=== PATIENT | male | born 1945 | race Caucasian/White ===

== ENCOUNTER → 2016-12-19 | Outpatient (CLI) | payer BC ==
[~2016-12-19] MED LIST: ASPI81TA28 PO; CYAN100020; FOLI1TAB7 PO
[2016-12-19 11:21] LABS: ALT/SGPT 72 U/L (12-78); AST/SGOT 66 U/L (15-37); BLOOD UREA NITROGEN 13 mg/dl (7-18); BUN/CREATININE RATIO 10.5 (10-20); CALCIUM 9.1 mg/dl (8.5-10.1); CARBON DIOXIDE 27 mmol/L (21-32); CHLORIDE 105 mmol/L (98-107); GLUCOSE 142 mg/dl (70-99); POTASSIUM 4.4 mmol/L (3.5-5.1); SODIUM 141 mmol/L (136-145)
[2016-12-19 11:22] LABS: ALKALINE PHOSPHATASE 79 U/L (45-117)
[2016-12-19 11:53] LABS: ESTIMATED AVERAGE GLUCOSE 117 mg/dl; HA1C FLAG Normal (Normal)
--- NOTE | 2016-12-25 12:31 | CODING QUERY MEDICAL NECESSITY ---
SUPPORTING DIAGNOSIS NEEDED A supporting diagnosis is required for the test/procedure performed on this patient in order for us to be reimbursed by the patient's insurance. Please provide a supporting diagnosis for the following test/procedure listed below next to the test name along with your signature. *If there is no additional diagnosis for this patient that would support the following test/procedure please document that below next to the test/procedure. Test(s)/Procedure(s) that require a supporting diagnosis: * GLYCATED HEMOGLOBIN DIAGNOSIS: * DOS: 12/19/16 Provider Signature: Date: Thank you Jennifer Hardy Health Information Management Once completed, please kindly fax back to [phone] For questions please call [phone]
== END | disposition home or self-care (01) ==
LOC: C.LABBC 08:00
PROVIDERS: ATTEND Family Medicine
DX: E72.11 Homocystinuria (principal); C18.9 Malignant neoplasm of colon, unspecified; D49.0 Neoplasm of unspecified behavior of digestive system; K76.0 Fatty (change of) liver, not elsewhere classified; R73.03 Prediabetes; D68.62 Lupus anticoagulant syndrome

== ENCOUNTER → 2017-05-24 | Outpatient (CLI) | payer BC ==
[2017-05-24 10:54] LABS: BASO % 0.2 %; BASO ABS # 0.01 K/uL (0-0.2); COMPLETE YES; EOS % 2.7 %; HEMATOCRIT 44.2 % (42-52); IG% 0.2 %; LYMPH % 28.4 %; LYMPH ABS # 1.35 K/uL (1.2-3.4); MEAN CELL VOLUME 88.9 fL (80-100); MEAN CORPUSCULAR HEMOGLOBIN 30.8 pg (25-34); MEAN CORPUSCULAR HGB CONC 34.6 g/dl (32-36); MEAN PLATELET VOLUME 11.5 fL (7.4-10.4); MONO % 8.2 %; NEUT % 60.3 %; PLATELET COUNT 127 K/uL (130-400); RED BLOOD COUNT 4.97 M/uL (4.7-6.1); WHITE BLOOD COUNT 4.75 K/uL (4.8-10.8)
[2017-05-24 11:16] LABS: ALT/SGPT 66 U/L (12-78); AST/SGOT 62 U/L (15-37); BLOOD UREA NITROGEN 20 mg/dl (7-18); BUN/CREATININE RATIO 15.5 (10-20); CALCIUM 9.5 mg/dl (8.5-10.1); CARBON DIOXIDE 27 mmol/L (21-32); CHLORIDE 105 mmol/L (98-107); GLUCOSE 141 mg/dl (70-99); POTASSIUM 4.3 mmol/L (3.5-5.1); SODIUM 140 mmol/L (136-145)
[2017-05-24 11:18] LABS: ALKALINE PHOSPHATASE 69 U/L (45-117)
== END | disposition home or self-care (01) ==
LOC: C.LABBC 07:52
PROVIDERS: ATTEND Nurse Practitioner
DX: C18.8 Malignant neoplasm of overlapping sites of colon (principal)

== ENCOUNTER → 2017-07-16 | Outpatient (CLI) | payer BC ==
[2017-07-16 11:18] LABS: ESTIMATED AVERAGE GLUCOSE 137 mg/dl; HA1C FLAG Normal (Normal)
[2017-07-16 11:29] LABS: ALT/SGPT 63 U/L (12-78); AST/SGOT 59 U/L (15-37); BLOOD UREA NITROGEN 16 mg/dl (7-18); BUN/CREATININE RATIO 12.4 (10-20); CALCIUM 8.9 mg/dl (8.5-10.1); CARBON DIOXIDE 28 mmol/L (21-32); CHLORIDE 103 mmol/L (98-107); GLUCOSE 153 mg/dl (70-99); POTASSIUM 4.5 mmol/L (3.5-5.1); SODIUM 136 mmol/L (136-145)
[2017-07-16 11:31] LABS: ALB/GLOB RATIO 0.9 (0.9-2); ALKALINE PHOSPHATASE 72 U/L (45-117); CHOLESTEROL 109 mg/dl (0-200); CHOLESTEROL/HDL RATIO 2.9; HDL CHOLESTEROL 38 mg/dl; LDL CHOLESTEROL CALCULATED 52 mg/dl; TRIGLYCERIDES 96 mg/dl (0-150); VERY LOW DENSITY LIPOPROT CALC 19 mg/dl
== END | disposition home or self-care (01) ==
LOC: C.LABBC 07:31
PROVIDERS: ATTEND Family Medicine
DX: D68.62 Lupus anticoagulant syndrome (principal); K76.0 Fatty (change of) liver, not elsewhere classified; C18.9 Malignant neoplasm of colon, unspecified; R73.03 Prediabetes; Z11.59 Encounter for screening for other viral diseases

== ENCOUNTER → 2018-01-11 | Outpatient (CLI) | payer BC ==
[~2018-01-11] MED LIST changes: -FOLI1TAB7 PO; +FOLI1TAB8 PO
[2018-01-11 11:31] LABS: ALT/SGPT 58 U/L (12-78); AST/SGOT 54 U/L (15-37); BLOOD UREA NITROGEN 18 mg/dl (7-18); CALCIUM 9.5 mg/dl (8.5-10.1); CARBON DIOXIDE 28 mmol/L (21-32); CREATININE 1.32 mg/dl (0.60-1.40); GLUCOSE 157 mg/dl (70-99); POTASSIUM 4.5 mmol/L (3.5-5.1); SODIUM 135 mmol/L (136-145)
[2018-01-11 11:34] LABS: ALKALINE PHOSPHATASE 77 U/L (45-117); CHOLESTEROL 129 mg/dl (0-200); LDL CHOLESTEROL CALCULATED 72 mg/dl; TOTAL PROTEIN 8.7 gm/dl (6.4-8.2)
[2018-01-11 11:55] LABS: HEMOGLOBIN A1C 6.6 % (4.5-5.6)
== END | disposition home or self-care (01) ==
LOC: C.LABBC 07:38
PROVIDERS: ATTEND Family Medicine
DX: R73.03 Prediabetes (principal)

== ENCOUNTER 2024-02-26 08:54 | Observation (INO) ==
--- NOTE | 2024-02-04 13:40 | PAT Medication Instructions ---
Medication Instructions Date of Service February 04, 2024 Home Medications aspirin 81 mg tablet,delayed release (Adult Aspirin Regimen) 81 mg PO QAM folic acid 1 mg tablet 5 mg PO QAM MEDICATION INSTRUCTIONS: ASK your prescriber and surgeon aspirin 81 mg tablet,delayed release (Adult Aspirin Regimen) 81 mg PO QAM DO NOT take the morning of surgery folic acid 1 mg tablet 5 mg PO QAM Other Notes Remember: NOTHING TO EAT OR DRINK AFTER MIDNIGHT If you have any questions please call us at [phone] or [phone] or [phone] or [phone]
--- NOTE | 2024-02-07 08:39 | Anesthesiology Consultation ---
Date of Service February 07, 2024 Assessment & Plan (1) Encounter for pre-operative examination: - Check BSG AM DOS - Infectious disease screening: Per assessment on 02/07/24: No known infectious disease contacts or current infectious disease symptoms. No noted recent Covid positive test result. - Outpatient joint assessment: Pt currently scheduled for inpatient pathway. If surgeon requests review for outpatient joint pathway, patient is not recommended candidate for outpatient joint program from anesthesia standpoint. - PCP visit (08/31/23): "Assessment and Plan.. No identified concerns. Appears up-to-date except for his COVID booster which was discussed. Follow-up yearly or p.r.n.. arthritic pain of left hip in right knee. Discussed a trial of [id number] Voltaren.. Voltaran (diclofenac) cream over the counter to arthritic joints.. Follow Up: 1 yr with labs.. HPI.. Was scheduled for Medicare wellness but declined this and asked to be done as a regular physical. He enjoys good health despite having had colon cancer a decade ago. He states he has an even had a cold in a long time. His only physical complaint is for some arthritic pain in his right knee and left hip. He takes nothing for it. He otherwise feels well. We discussed his recent lipid and glucose screening. He also had a follow-up sigmoidoscopy in 10/2022. Flu shot last month at [facility]. he is debating whether to get the COVID booster. He did have the 1st three shots. He is up-to-date on his tetanus, Shingrix, Prevnar, and Pneumovax. [facility]. Has labs again next month." Chart Review Chart Review: Acceptable Risk for Surgery and Patient seen in Pre Admission Testing Teaching & Discussion Pre-Anesthesia Teaching/Discussion Notes: Instructed NPO after midnight before surgery,except medications with 15 cc of water. Medication instructions provided according to the PAT guidelines. History Surgery Operation Date: 02/26/24 10:40 Proposed Procedures p Left Total Hip Arthroplasty - Augustin Bah MD Height/Weight Height: 5 ft 10 in Weight: 99.6 kg Allergies Allergy/AdvReac Type Severity Reaction Status Date / Time No Known Allergies Allergy Verified 01/29/24 13:37 Medications Home Medications Medication Instructions Recorded Confirmed Last Taken aspirin 81 mg tablet,delayed 81 mg PO QAM 07/31/19 01/29/24 08/21/22 08:00 release (Adult Aspirin Regimen) folic acid 1 mg tablet 5 mg PO QAM 01/29/24 01/29/24 Unknown Past Medical History Medical History Antiphospholipid antibody syndrome Per records, unsure Arthritis of left hip Cataracts, both eyes Chronic congestive splenomegaly Colon cancer Dx 2011 S/P large colon removal + colostomy (subsequent colostomy reversal) COPD (chronic obstructive pulmonary disease) Fatty liver disease, nonalcoholic Hearing loss History of COVID-19 12/2021- asymptomatic IPMN (intraductal papillary mucinous neoplasm) Per records, unsure Lupus anticoagulant disorder Solitary pulmonary nodule Thrombocytopenia Chronic thrombocytopenia, platelet baseline in the low 100s x years Type 2 diabetes, diet controlled Vertebral artery stenosis/occlusion [place]ck CTA 10/2013 ([place]): markedly small right vertebral particularly the proximal and mid portions, 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 Exercise / Class Metabolic Activity II 4-5 Yardwork/Stairs/Walk up hill (one FS: No CP, no SOB) Past Family History Family History Father Diabetes Heart disease Myocardial infarction Asthma Sister Myocardial infarction Mother Family history of cancer Cancer Grandfather Stroke Other No family history of adverse response to anesthesia No family history of bleeding disorder Denies family history of Ovarian cancer Prostate cancer Breast cancer Colorectal cancer Hypertension Past Surgical History Surgical History History of colonoscopy History of colostomy reversal History of endoscopy History of exploratory laparotomy for infection History of foot surgery Right toe (+ hardware) History of right inguinal hernia repair History of tonsillectomy and adenoidectomy History of tooth extraction upper denture S/P colon resection All of large colon removed + colostomy (subsequent colostomy reversal) Past Anesthesia History No Hx of Anesthesia Complications and No Family Hx of Anesthesia Complications History of PONV No Hx of PONV and No Hx of Motion Sickness Social History Smoking Status: Former smoker Do You Dip or Chew Tobacco: No (Quit 25 years ago) Smoking End Date: Cigarette use as teenager- age 40s, quit 20+ years ago Hx Alcohol Use: No Hx Substance Use: No substance use type: does not use Review of Systems Patient denies chest pain, shortness of breath, dyspnea on exertion, fever, chills, cough, wheezing, palpitations. Physical Exam Vital Signs BP 147/77 P 64 TEMP 97.9 SP02 95 RESP 16 Physical Decreased cervical extension range of motion. Full TMJ range of motion. TMD 3 finger breaths Mallampati Score 3 Dentition: upper denture Lungs: clear throughout to auscultation Cardiac: regular rate and rhythm, no murmurs noted Spine: normal Carotid arteries: negative bruit Extremities: no LE edema Lab Results Anesthesia Preop Results Results Anesthesia Widget: WBC 5.23 K/ul (4.8-10.8) 02/07/24 Hgb 14.6 g/dl (14.0-18.0) 02/07/24 Hct 42.8 % (42.0-52.0) 02/07/24 Plt 121 K/uL (130-400) L 02/07/24 Na 139 mmol/L (136-145) 02/07/24 K 4.5 mmol/L (3.5-5.1) 02/07/24 Cl 103 mmol/L (98-107) 02/07/24 CO2 28 mmol/L (21-32) 02/07/24 BUN 24 mg/dl (6-23) H 02/07/24 Creat 1.23 mg/dl (0.6-1.4) 02/07/24 Glucose Level 147 mg/dl (70-99(Fasting)) H 02/07/24 PT 11.5 Seconds (9.0-12.0) 02/07/24 PTT 30 Seconds (21-31) 02/07/24 INR 1.1 (0.9-1.1) 02/07/24 HA1c 5.8 % (4.5-5.6) H 02/07/24 Blood Type O Positive 02/07/24 Antibody Screen NEGATIVE 02/07/24 Testing Electrocardiogram Date: 02/07/24 NSR at 66bpm. "Normal ECG" Other Testing Chest CT Date: 05/27/23 FINDINGS: Stable 8 mm left-sided thyroid nodule. No lymphadenopathy. The heart is normal in size without pericardial effusion. Extensive coronary artery calcifications. Atherosclerosis of the thoracic aorta without aneurysm. Unremarkable pulmonary artery. Moderate pulmonary emphysema with biapical pleural-parenchymal scarring and apical predominant bulla again noted. 3.7 x 1.8 cm irregular subpleural opacity in the right lung apex is unchanged on image 63 series 8. No new or enlarging pulmonary nodules are identified and bibasilar predominant fibrotic changes. Central airways are patent. Stable subpleural solid nodules within the basal left lower lobe measuring up to 4 mm. No acute process identified within the imaged upper abdomen. Splenomegaly. A 1.7 cm cystic focus of the pancreatic tail, likely a side branch IPMN. Cholelithiasis. Stable 1.2 cm nodule within the subcutaneous tissues of the right lateral chest wall on image 166 series 8. Degenerative changes of the shoulders and spine. No acute fracture identified. IMPRESSION: Emphysema without acute intrathoracic abnormality. Unchanged 3.7 cm irregular subpleural right apical opacity, likely postinflammatory scarring. No lymphadenopathy. Unchanged indeterminate 1.2 cm subcutaneous nodule of the right lateral chest. Cholelithiasis.
[~2024-02-26 08:54] MED LIST changes: -ASPI81TA28 PO; +BUPIVACAINE 0.5 % 5 MG/1 ML PF 10ML VIAL ONE; -CYAN100020; -FOLI1TAB8 PO
[2024-02-26] MEDS ORDERED: MIDAZOLAM HCL 1 MG/ML 2ML VIAL ONE (08:57)
[2024-02-26] MEDS ORDERED: PROPOFOL IV EMULSION 10 MG/ML 20 ML VIAL IV ONE ×2 (08:57→12:41)
[2024-02-26] MEDS: LR 60ML/HR IV SCH (09:05)
[2024-02-26] MEDS: LR 500ML BOLUS, THEN 15ML/HR IV SCH (09:27)
[2024-02-26] MEDS: CeleBREX 200 MG CAP PO SCH (09:46)
[2024-02-26] MEDS: METOCLOPRAMIDE HCL 10 MG TABLET PO SCH (09:47)
[2024-02-26] MEDS: ACETAMINOPHEN 500 MG TAB PO SCH ×2 (09:47→15:21)
[2024-02-26] MEDS: FAMOTIDINE 20 MG TAB PO SCH (09:47)
[2024-02-26] MEDS: dexAMETHasone**PF** 10 MG/ML VIAL IV SCH (09:49)
[2024-02-26] MEDS ORDERED: fentaNYL citrate PF 100 MCG/2 ML VIAL ONE (10:23)
[2024-02-26] MEDS ORDERED: fentaNYL citrate PF 100 MCG/2 ML VIAL IV PRN (10:25)
[2024-02-26] MEDS ORDERED: ATROPINE SULFATE 0.1 MG/ML 10ML SYR IV PRN (10:25)
[2024-02-26] MEDS ORDERED: ePHEDrine sulfate 50 MG/ML AMP IV PRN (10:25)
[2024-02-26] MEDS: TRANEXAMIC ACID 1,000 MG **IV Pre-op IV SCH (10:27)
--- NOTE | 2024-02-26 10:41 | History & Physical Bridge Note ---
Date of Service February 26, 2024 History & Physical Bridge Note I have examined the patient, reviewed the History & Physical and in the interval since the performance of the History & Physical I have noted the following changes of clinical significance: no changes noted
[2024-02-26] MEDS: ceFAZolin 2000MG 2,000 MG/15 ML SYR IV SCH ×2 (10:55→17:52)
[2024-02-26] MEDS: BUPIVACAINE/EPINEPHRINE 0.5% MPF 1:200,000 30 ML VIAL ONE (11:32)
--- NOTE | 2024-02-26 12:28 | Operative Report ---
PG Post Operative Report Pre & Post Diagnosis Operation Date: 02/26/24 10:40 Pre-Op Diagnosis: Left Hip Advanced Degenerative Joint Disease Post-Op Diagnosis: Left Hip Advanced Degenerative Joint Disease I identified the patient and participated in the time-out.: Yes Procedure Operation Date: 02/26/24 10:40 Actual Procedures p Left Total Hip Arthroplasty, Uncemented(Left) - Augustin Bah MD Surgeon Augustin Bah MD High Risk Case Manager Jac Medina PA-C Estimated Blood Loss 200 Findings Consistent with Post-Op Diagnosis Operative findings show advanced left hip DJD. Grade 4 [id number] disease of the femoral head and acetabulum. Not much in the way of eburnation. Full- thickness cartilage loss. Moderate-sized joint effusion. Specimens Left femoral head sent for pathology. Anesthesia Type Spinal MAC Complications none Disposition Accompanied Patient To Recovery: No Indications Patient is a 79-year-old gentleman status 7-year history of increasing left hip pain discomfort that is gradually gotten worse over time. You have been through extensive conservative care which became less successful over time. X-rays show advanced left hip arthritis. He elected proceed with a left total hip arthroplasty. Description of Procedure Operative implants consisted of: 1 Biomet G7 size 56 mm acetabular shell. 2. 6.5 cancellous acetabular screws 1 of 35 mm in length and 1 of 30 mm length. 3. [place] hole eliminator. 4. Highly cross-linked polyethylene liner with a 56 mm outer diameter 40 mm diameter. 5. DePuy Corail size 11 KLA femoral stem. 6. +5/40 mm ceramic articular ball. The patient was taken the op room, identified, placed on the operating table in the supine position but all contractors were appropriately padded. IV antibiotics were by anesthesia team for spinal anesthetic and implement holding area. The patient was then placed in the right lateral decubitus position. Axillary roll was placed. The Stulberg hip positioner was used for positioning. The left hip and leg were then prepped and draped in usual sterile fashion. A posterolateral approach to the left hip was then performed through a curvilinear incision centered over the greater trochanter. Sharp dissection was Through subcutaneous tissue down of the IT band gluteal fascia projective and gluteal fascia incised longitudinally in line with skin incision. The under lying greater and bursa was excised. The piriformis neck rotators along with the posterior hip joint capsule then released from the posterior aspect of the hip as a single layer. Great care was taken throughout the procedure protect sciatic nerve at all times. The hip was internally rotated and dislocated. A femoral neck osteotomy cut was made with Final Cut about 15 mm above the lesser trochanter. Femoral head was removed and sent for pathology. The femur was retracted anteriorly. Attention drawn the acetabulum. The acetabular labrum was excised. The pulmonary fat was excised. Sequential reaming the acetabulum was then performed again with a size 45 and progressing up to a 55. I reamed a little bit with a 56 reamer and plan placed a 56 mm acetabular shell in about 40 degree lateral opening and 20 degrees of anteversion. It was fixed with two 6.5 cancellous acetabular screws. A trial liner was placed. Attention drawn the femur. The proximal femur was entered with a Goowy cutter followed by canal finder. I then broached beginning with a size 8 and progressed up to 11. Got excellent fit at 11. I did not think I can safely get the at 12 down. We trialed the hip and the +5 particular ball provided full stability in full extension and external rotation and flexion to 90 degrees and internal Tatian over 50 degrees. I did elect to place a 40 mm head to maximize his stability and placed a lower lip inferior and posterior. We electrophoreses implants. All trial implants were removed. An apex hole limiter was placed. Highly cross-linked polyethylene liner with a olmstead was then placed inferior and posteriorly. A size 11 KLA femoral stem was impacted in position. +5/40 mm ceramic articular ball was placed. Hip was located and once again found to be stable. Attention turned toward closing. Wounds irrigated with pulsatile lavage solution. I did inject locally with 60 cc of half percent Marcaine with epinephrine. The posterior capsule and external rotators were then repaired through drill holes with #2 Tycron suture. The IT band gluteal fascia and then closed the 1 PDS suture running fashion. Subcutaneous tissue was then closed in 2 layers with a deep layer #1 Vicryl suture the subcutaneous tissues with 2-0 Dexon suture in a buried interrupted fashion. Skin was closed skin miguel angel. Leg was then cleaned and dried and a sterile dressing composed Xeroform, 4 fours, ABD pad and foam tape was applied. The patient then transferred to the recovery room in stable condition. Patient tolerated procedure well and there were no complications. Jac Medina, my physician teachers assistant, was present for the entire procedure. His assistance was essential and required for appropriate patient positioning, prepping and draping, surgical exposure, performing the technical details of the operation, placement the implants, closure of the wound, and placement of the sterile bandage. I attest to the content of the Intraoperative Record and any orders documented therein. Any exceptions are noted below.
--- NOTE | 2024-02-26 13:00 | XRay Report ---
XR hip 1V LT w pelvis HISTORY: 79 years-old Male IN PACU - Post Surgical left hip arthroplasty COMPARISON: 12/17/2023 TECHNIQUE: AP view the pelvis with 2 views of the left hip FINDINGS: Moderate right posterolateral arthritis. Satisfactory alignment of the left hip arthroplasty. Lateral skin miguel angel with expected postoperative soft tissue swelling and deep tissue air. No acute fracture , dislocation or unexpected opaque foreign body. Arterial calcifications. IMPRESSION: Left hip arthroplasty with expected postoperative changes. ACT 112: Negative or not required by law. The above report was generated using voice recognition software. It may contain grammatical, syntax o r spelling errors. Electronically signed by: Arash Christiansen M.D. 02/26/2024 12:59 PM
--- NOTE | 2024-02-26 13:08 | Anesthesiology Progress Note ---
Date of Service February 26, 2024 Anesthesia Post Procedure Vital Signs Vital Signs: Temp Pulse Pulse Resp BP Pulse Ox O2 Del Method 02/26/24 12:55 84 17 157/64 H 89 L Room Air 02/26/24 12:45 85 20 143/70 H 96 Room Air 02/26/24 12:35 86 17 125/62 94 Room Air 02/26/24 12:25 88 19 137/67 97 Room Air 02/26/24 12:15 101 H 21 133/71 97 Room Air 02/26/24 12:08 36.3 C L 95 H 18 119/60 96 Room Air 02/26/24 09:20 36.5 C 79 20 163/64 H 98 Room Air Pain Intensity Left Hip: Pain Intensity: 6 Transfer of Care Handoff Completed per policy Notes Mental Status: alert / awake / arousable Patient Amnestic to Procedure: Yes Nausea / Vomiting: adequately controlled Pain: adequately controlled Airway Patency, RR, SpO2: stable & adequate BP & HR: stable & adequate Hydration State: stable & adequate Neuraxial Anesthesia: was administered and sensory block is resolving Anesthetic Complications: no major complications apparent
[2024-02-26] MEDS ORDERED: NALOXONE HCL 0.4 MG/1 ML VIAL/CARP IV PRN (14:18)
[2024-02-26] MEDS ORDERED: ACETAMINOPHEN 500 MG TAB PO SCH (14:18)
[2024-02-26] MEDS ORDERED: ACETAMINOPHEN 1,000 MG/100 ML VIAL IV PRN (14:18)
[2024-02-26] MEDS ORDERED: METOCLOPRAMIDE HCL INJ 5 MG/ML 2 ML VIAL IV PRN (14:18)
[2024-02-26] MEDS ORDERED: ALUMINUM/MAGNESIUM SUSP 30 ML UDC PO PRN (14:18)
[2024-02-26] MEDS ORDERED: CARBOHYDRATES FOR HYPOGLYCEMIA PO PRN (14:18)
[2024-02-26] MEDS ORDERED: DEXTROSE 50% 50 ML SYRINGE IV PRN (14:18)
[2024-02-26] MEDS ORDERED: HYDROmorphone INJ 0.5 MG/0.5 ML SYR IV PRN (14:18)
[2024-02-26] MEDS ORDERED: traMADol HCL 50 MG TABLET PO PRN (14:18)
[2024-02-26] MEDS ORDERED: PHARMACY GLYCEMIC MGMT CONSULT PRN (14:18)
[2024-02-26] MEDS ORDERED: GLUCOSE 10 TAB/TUBE PO PRN (14:18)
[2024-02-26] MEDS ORDERED: MAGNESIUM HYDROXIDE SUSP 30 ML UDC PO PRN (14:18)
[2024-02-26] MEDS ORDERED: ONDANSETRON INJ 2 MG/ML 2 ML VIAL IV PRN (14:18)
[2024-02-26] MEDS ORDERED: GLUCOSE 40% GEL 15 GM TUBE PO PRN (14:18)
[2024-02-26] MEDS ORDERED: bisacodyL 10 MG SUPP PR PRN (14:18)
[2024-02-26] MEDS ORDERED: GLUCAGON FOR INJ 1 MG VIAL SQ PRN (14:18)
[2024-02-26] MEDS: SODIUM CHLORIDE 0.9% 1,000 ML IV SCH (14:29)
[2024-02-26] MEDS: INSULIN ASPART PER UNIT CHARGE SC SCH (15:21)
[2024-02-26] MEDS: KETOROLAC TROMETHAMINE 15 MG/ML VIAL IV SCH (15:21)
[2024-02-26] MEDS: LANTUS PER UNIT CHARGE SC SCH (15:21)
--- NOTE | 2024-02-26 15:23 | Pharmacy Report ---
Pharmacy Glycemic Short Note 2 - Date of Service February 26, 2024 - Glycemic Short BSG Results (Last 24 hours): 02/26/24 02/26/24 02/26/24 09:12 12:12 15:09 POC Glucose 142 H 220 H 192 H OUTPATIENT ANTIDIABETIC REGIMEN: * none (diet controlled) * HbA1c 5.8% (02/07/24) ASSESSMENT: * Parmjit is a 79 YOM admitted status post left total hip arthroplasty with a history of T2DM currently controlled on diet alone. Pharmacy has been consulted for glycemic management while inpatient. * Preoperative BSG within goal range, indra to 220mg/dL at lunchtime with IV dexamethasone given preoperatively. Will add a small dose of basal insulin (0.1 units/kg) to cover steroids today. Also ordered dexamethasone 10mg IV x1 tomorrow. * Novolog initiated between at a weight based stress of 1.5 while on IV steroids. PLAN FOR INPATIENT GLYCEMIC CONTROL: * Hold outpatient oral diabetes medications * Basal insulin * Lantus 10 units SQ daily with IV dexamethasone * Bolus insulin * NovoLog per scale ACHS or Q6hrs while NPO * Goal Range: Low 120 mg/dL - High 160 mg/dL * Correction Factor: 30 mg/dL/unit * Nutritional / Prandial insulin per carb ratio of 1 unit per 10 grams CHO consumed
[2024-02-26] MEDS: ASCORBIC ACID 500 MG TAB PO SCH (17:24)
[2024-02-26] MEDS: TRANEXAMIC ACID / 0.7% NACL 1,000 MG/100 ML BAG IV SCH (17:52)
[2024-02-26] MEDS: ONDANSETRON INJ 2 MG/ML 2 ML VIAL IV PRN (18:09)
[2024-02-26] MEDS ORDERED: SENNA 8.6 MG TAB PO SCH (21:00)
[2024-02-26] MEDS: ASPIRIN 81 MG ECTAB PO SCH (21:28)
[2024-02-26] MEDS: DOCUSATE SODIUM 100 MG CAP PO SCH (21:30)
[2024-02-26] MEDS: SENNA 8.6 MG TAB PO SCH (21:30)
[2024-02-27 07:13] LABS: Calcium 8.9 mg/dl (8.6-10.3); Creatinine Clr Calc Pharmacy 57.4 ml/min; Est GFR (African American) 64.3 ml/min; Est GFR (Non-African American) 55.5 ml/min; Potassium 4.5 mmol/L (3.5-5.1)
[2024-02-27] MEDS: dexAMETHasone 10 MG in SYRINGE 0 ML IV SCH (08:06)
[2024-02-27] MEDS: MULTIVITAMIN TAB PO SCH (08:07)
[2024-02-27] MEDS: TAMSULOSIN HCL 0.4 MG CAP PO SCH (08:07)
[2024-02-27] MEDS: FOLIC ACID 1 MG TAB PO SCH (08:08)
--- NOTE | 2024-02-27 10:12 | Orthopedic Progress Note ---
Date of Service February 27, 2024 Assessment & Plan (1) Status post left hip replacement: Overall, he is doing quite well today with good pain control to the left hip. He has participated well with physical therapy working on ambulation and range of motion exercises. He is on aspirin for DVT prophylaxis. He can be discharged home later this morning pending formal physical therapy evaluation and recommendations. He will follow-up with Dr. Bah in 2 weeks for postoperative management. Farnaz Ross was seen and evaluated this morning resting comfortably no apparent distress. He notes that his pain is well-controlled to the left hip. He just finished with physical therapy in which physical therapy did tell me that he participated very well with them working on ambulation and range of motion exercises. He notes that he was out of bed and ambulating without much discomfort prior to physical therapy. He denies any other concerns today. Review of Systems All systems reviewed & are unremarkable except as noted in HPI & below. Physical Exam . On physical examination of the left hip: Dressings are clean, dry, intact. His leg is on full extension. He has active plantarflexion dorsiflexion of left ankle. +2 DP and PT pulses. Less than 2-second capillary refill. Normal sensation. No vascular intact. Results & Data Results & Data Laboratory Results . Diagnostic Findings . Postoperative x-rays of the left hip show prosthesis to be anatomical alignment with no signs of fracture complication or loosening. PG Care Time/CCT Total # of Minutes Spent Total Time Spent with Patient: Total time spent is greater than 50% in coordination of care (as documented) at patient's floor/unit and/or counseling patient: Coding Level of Care Code 35080 Post Operative Follow-Up Diagnoses Status post left hip replacement Z96.642
--- NOTE | 2024-02-27 10:13 | Discharge Summary ---
Date of Service February 27, 2024 Principal Diagnosis Same as "Discharge Diagnosis" noted below under Discharge Instructions. Discharge Exam . On physical examination of the left hip: Dressings are clean, dry, intact. His leg is on full extension. He has active plantarflexion dorsiflexion of left ankle. +2 DP and PT pulses. Less than 2-second capillary refill. Normal sensation. No vascular intact. Discharge Data Procedures Performed Operation Date: 02/26/24 10:40 Actual Procedures p Left Total Hip Arthroplasty, Uncemented(Left) - Augustin Bah MD Ordered Studies 02/26/24 05:00 US - OR guided needle placemen Routine Hospital Course (1) Status post left hip replacement: On February 26, 2024 Cody arrived at [facility] in the hospital and underwent a left total hip arthroplasty performed by Dr. Gonzales with no complications. He had a spinal anesthetic. Postoperatively, he was started on aspirin for DVT prophylaxis and transferred to the general orthopedic floor in stable condition. His hospital course is uneventful. On postoperative day #1, his vital signs are stable and his pain is well-controlled. He participated well with physical therapy working on ambulation and range of motion exercises. He was then discharged home stable condition. He will follow-up in [address] Bah for postoperative management. PG Care Time/CCT Total # of Minutes Spent Total Time Spent with Patient: Total time spent is greater than 50% in coordination of care (as documented) at patient's floor/unit and/or counseling patient: Discharge Plan Discharge Items Patient Disposition: Home - Home Health Services Reason For Visit: POST SURGICAL CARE Discharge Diagnosis: Left Hip REplacement Activity: Per Instructions section Activity Comment: Follow/Obey hip precautions at all times. Weightbearing: Full weightbearing Weightbearing Comment: Weightbear as tolerated obeying hip precautions at all times. Non-emergency contact: Surgeon Call non-emergency contact if: you have any medication questions Follow-up/Referrals: Mary Valdez MD [Primary Care Provider] - Augustin Bah MD [Physician] - (Orthopedic follow-up 2-3 weeks from surgery date.) Diet: Carb Consistent or DM2 Addtl Attending Provider Instructions: ACTIVITY RECOMMENDATIONS: Physical Therapy: * Aggressive physical therapy is not usually needed. You will learn to take care of yourself safely and walk. * Follow the "Hip Precautions Instructions." * In some cases, the child protective services social worker at the hospital will arrange to have a therapist come to your house for the first couple of weeks to help you learn these skills. * You need to practice on your own or with the help of a family member as needed. * When you learn these skills, most of the therapy can be done on your own. Home Exercise: * You were shown a series of exercises in the hospital. Do these exercises three to four times each day including the exercises you were shown in physical therapy. Walking: * Get up and walk several times each day. For the first four weeks, try not to stand or walk for more than one hour at a time. If you do stand or walk for more than one hour, you will not hurt anything, but your leg will likely swell. * As you feel comfortable, you may change from the walker or crutches to a cane and then to independent walking. MEDICATIONS: New Medicine: * You will likely be taking one or more of these medicines: 1. Tramadol - Take, as directed, when you need it, every six hours to control your pain. 2. Aspirin - Thins your blood to lessen the chance of forming a blood clot. * The most common side effects of pain medicine and iron are nausea and c onstipation. If nausea or constipation is too much of a problem or if you have any questions about your new medicines or doses, call [facility] at [phone]. We will try to help you manage these issues. "VERY IMPORTANT TO READ AND REVIEW" Pain: * The immediate post-operative period after hip replacement surgery is often quite painful. * You are given a prescription for pain medicine. You should take it, as directed, when you need it, especially before physical therapy and before going to bed. Pain that interferes with sleep is very common and can last several months. * You will likely need pain medicine for the first two to four weeks. It will not stop all of the pain. The pain will lessen and as you feel better, you may change to milder pain medicine such as Tylenol. * The most common side effects of pain medicine are nausea and constipation, so don't take more than you need. SPECIAL CARE INSTRUCTIONS: TEDs/Elastic Stockings: * The white elastic stockings help limit swelling and prevent blood clots from forming in your legs. The more you wear them, the more they work. * Wear them for six weeks. Incision Site Care: * Remove dressing postoperative day 2 and then shower. Keep direct shower pressure off the incision site. * After showering, cover smooth with dry gauze and change daily or more frequently if the dressing is getting saturated with drainage. * May completely stop using bandage if wound is dry and no drainage * Smooth are removed between 2 and 3 weeks post-op. If your follow-up appointment is made before 2 weeks, please have your appointment re- scheduled. It is too early to remove the smooth. Prevention of Infection: * Take antibiotics one hour before any dental cleaning, dental work, urological procedure, gastrointestinal procedure or any invasive surgery in order to prevent your new joint from getting infected. * You may get the antibiotics from the doctor performing the procedure or you may call our office at before and we will call in a prescription to the pharmacy of your choice. Things to Watch For: * Drainage from the incision site that occurs more than one week after your surgery. * Severely increased leg pain or swelling. * Increased redness at the incision site. * Fever above 102 degrees Fahrenheit. * Unusual chest pain or shortness of breath. * Unusual pain or burning with urination. Call [facility] at with any of the above problems or if you have any questions about your medicines or recovery. FOLLOW UP VISIT: Make an appointment to see your doctor for approximately two weeks after surgery for a progress check and staple removal by calling the office at . Pending Studies at Discharge: No Stand-Alone Forms: My [facility], Pain - Opioid Pain Management, Smoking Cessation Medications and DC Order Prescriptions: Continued (DME) Wheeled Walker Misc See Rx Instructions .MEDSUPPLY Qty: 1 0RF Rx Instructions: As directed tramadol 50 mg tablet 50 - 100 mg PO Q6 PRN (Reason: pain) Qty: 40 0RF Rx Instructions: Take as needed for pain ondansetron 4 mg tablet,disintegrating 4 mg PO Q8 PRN (Reason: nausea) Qty: 20 1RF Rx Instructions: Take as needed for nausea ketorolac 10 mg tablet 10 mg PO TID 5 Days Qty: 15 0RF Rx Instructions: Take 3 times per day with food for 5 days to lessen pain and swelling. sennosides [Senokot] 8.6 mg tablet 8.6 mg PO BID 14 Days Qty: 28 0RF Rx Instructions: Take two times a day to prevent/treat constipation acetaminophen [Tylenol Extra Strength] 500 mg tablet 1,000 mg PO TID 30 Days Qty: 180 0RF Rx Instructions: Take 3 times per day to lessen pain. aspirin [Marcus Low Dose Aspirin] 81 mg tablet,delayed release (DR/EC) 81 mg PO BID 45 Days Qty: 90 0RF Rx Instructions: Take to prevent blood clots tamsulosin [Flomax] 0.4 mg capsule 0.4 mg PO DAILY Qty: 7 0RF Rx Instructions: Begin night BEFORE surgery to prevent urinary retention aspirin [Adult Aspirin Regimen] 81 mg tablet,delayed release (DR/EC) 81 mg PO QAM folic acid 1 mg tablet 5 mg PO QAM Rx Instructions: 5 MG orally daily for 90 days Krames/Other Patient Handouts: Hip Precautions, Hip Replace Sitting Safely, Total Hip Replacement, Understanding Hip Replacement Admission Data Admit Date/Time: 02/26/24 12:20 Attending Provider: Augustin Bah Admit Provider: Augustin Bah Primary Care Provider: Mary Valdez Other Providers: [facility],Home Health Other Interventions: Discharge Summary Assessment (RN) Last Done: 02/27/24 10:00
[2024-02-27 10:19] LABS: Basophils # (auto) 0.01 K/uL (0.00-0.20); Basophils % (auto) 0.1 %; Hematocrit (blood only) 33.2 % (42.0-52.0); Hemoglobin 10.9 g/dl (14.0-18.0); Immature Granulocytes # (auto) 0.02 K/uL (0.01-0.20); Immature Granulocytes % (auto) 0.2 %; Lymphocytes # (auto) 0.63 K/uL (1.20-3.40); Lymphocytes % (auto) 7.7 %; Mean Corpuscular Hemoglobin 28.8 pg (25.0-34.0); Mean Corpuscular Hgb Conc 32.8 g/dL (32.0-36.0); Mean Corpuscular Volume 87.8 fL (80.0-100.0); Mean Platelet Volume 11.1 fL (9.4-12.4); Monocytes # (auto) 0.87 K/uL (0.11-0.59); Monocytes % (auto) 10.7 %; Neutrophils % (auto) 81.3 %; Platelet Count 125 K/uL (130-400); RDW Coefficient of Variation 15.1 % (11.5-14.5); RDW Standard Deviation 48.1 fL (36.4-46.3); Red Blood Count 3.78 M/uL (4.70-6.10); White Blood Count 8.13 K/ul (4.8-10.8)
== END 2024-02-27 11:37 | disposition home health service (06) ==
LOC: 3E 08:54 → ASU 08:54
DX: M65.9 Synovitis and tenosynovitis, unspecified; Z79.82 Long term (current) use of aspirin; E11.9 Type 2 diabetes mellitus without complications; Z87.891 Personal history of nicotine dependence; M16.12 Unilateral primary osteoarthritis, left hip; D69.6 Thrombocytopenia, unspecified; J44.9 Chronic obstructive pulmonary disease, unspecified; Z86.16 Personal history of COVID-19; Z79.899 Other long term (current) drug therapy; M25.752 Osteophyte, left hip